=== PATIENT | male | born 1945 | race Caucasian/White ===

== ENCOUNTER 2016-12-17 17:58 | Emergency (ER) | payer MEDICARE ==
[~2016-12-17] VITALS: Ht 172.7 cm; Wt 88.6 kg
[~2016-12-17 17:58] MED LIST: ASPI-973 PO; GINK60TA2 PO
[2016-12-17 18:17] VITALS: BP 136/80; PULSE 88; RESP 16; O2SAT 97
--- NOTE | 2016-12-17 18:20 | ED.REPORT ---
HPI-Head Prob / Injury Date of Service Dec 17, 2016 ED Provider: Raman Gaffney DO Pt is a 71 y.o. male who presents to the ED c/o neck and back pain after falling while skiing at 1130 today. Pt states that he was wearing a helmet at the time of the fall. He reports skiing down hill and "getting air" then landing directly on his head, his head became buried in the snow. He denies LOC or head pain. Nursing Notes Stated Complaint: BACK/NECK PAIN Chief Complaint: Head, Face, Neck Trauma Nursing Notes Reviewed: Yes Allergies: Coded Allergies: bacitracin (Verified Allergy, Mild, 12/17/16) montelukast (Verified Allergy, Unknown, 12/17/16) Uncoded Allergies: BEE STINGS (Adverse Reaction, Unknown, 08/25/15) Scheduled Aspirin (Aspirin) 81 Mg Tablet 81 MG PO DAILY Ginkgo Biloba (Ginkgo) 60 Mg Tablet 60 MG PO DAILY General Time Seen by Provider: 18:19 Chief Complaint Other (Back and Neck pain) Hx Obtained From: Patient Arrived By: Walk-in Onset Occurred: 5 - 8 hours ago Context of Onset: During sports Symptom Duration: Since onset Caused by: Fall while (skiing) Quality: Painful Severity: Current: Moderate Recent Healthcare: No recent doctor visit, No recent hospitalization Similar Sx Previous: No Past Medical History Past Medical History Reports: Asthma Past Surgical History None reported Smoking History Never Smoker Ambulatory Status Independent Review of Systems Musculoskeletal: Reports: Back pain, Neck pain Neurologic: Denies: Change LOC, Headache Complete sys rev & neg: except as marked. Physical Exam Initial Vital Signs Vital Signs (First) Date Time Temp Pulse Resp B/P Pulse Ox O2 Delivery O2 Flow Rate FiO2 12/17/16 18:17 37.5 88 16 136/80 97 Room Air Initial VS: Reviewed Respiratory: Breath sounds normal, No respiratory distress Cardiovascular: Regular rate & rhythm, Intact distal pulses Abdomen / GI: No distention Extremities: Vascular intact, Neuro intact Skin: Warm, Dry, No cyanosis Psychiatric: Mood/affect normal, Behavior normal, Normal thought content General/Constitutional: Awake, Alert, No acute distress, Well appearing, Well developed, Well hydrated, Well nourished, Not toxic appearing Head / Eyes: Atraumatic, Normocephalic, PERRL ENT: Atraumatic, Airway patent Neck: Atraumatic Trauma - Neck Specific: Positive: Immobilized - C Collar C-spine tenderness Neurologic: Oriented X3, Speech NL, CN II - XII intact Flank / Spine / Paraspinal: Positive: Thoracic spine tender... (High) Interpretation & Diagnostics X-Ray C-Spine Interpretation X-Ray Interpretation Xray Interpretation: IMPRESSION: No trauma found. There is a moderate degree of degenerative disc disease over the lower thoracic spine and the lumbosacral junction as seen at L1-2 and L2-3. Dictated by: Leo Werner M.D. on 12/17/2016 at 19:26 Approved by: Leo Werner M.D. on 12/17/2016 at 19:26 Study Performed: PROCEDURE: X-RAY LUMBAR SPINE, 2 OR 3 VIEW Xray Interpretation: IMPRESSION: Mild to moderate degenerative disc disease over the middle and lower thirds of the thoracic spine, extending into the thoracolumbar junction, but no compression fracture or traumatic subluxation is found. Dictated by: Leo Werner M.D. on 12/17/2016 at 19:27 Approved by: Leo Werner M.D. on 12/17/2016 at 19:28 Study Performed: PROCEDURE: X-RAY THORACIC SPINE, [address] C-Spine Interpretation IMPRESSION: A moderate degree of mid cervical degenerative disc disease is present but no fracture or traumatic subluxation can be seen. Dictated by: Leo Werner M.D. on 12/17/2016 at 19:29 Approved by: Leo Werner M.D. on 12/17/2016 at 19:30 Re-Eval/Medical Decision Med Decision/Clinical Course No signs of bony or ligamentous injury. No neurologic deficits. Suspect strain. We will treat with short course of hydrocodone. Routine opiate warnings given. Routine neck injury warnings given as well. Brain CT was not indicated based on published guidelines. There was no loss of consciousness. He was wearing a helmet. He did not have vomiting. It has been greater than 6 hours since the accident. No headache. No anticoagulant use Source of Hx: Old records Re-Evaluation/Progress : Time of Eval: 19:53 Re-Evaluation/Progress Note: Pt rechecked. Discussed plan for discharge, pt understands and agrees with plan. Counseled Regarding: Diagnosis Discharge & Departure Primary Impression: Neck pain Additional Impression: Back pain Back pain location: thoracic back pain Chronicity: acute Back pain laterality: midline Qualified Code: M54.6 - Pain in thoracic spine Disposition: Home All VS Reviewed: Yes Condition: Stable Patient Instructions: Cervical Sprain (ED) Additional Instructions: The images reveal evidence of degenerative changes however there is no fracture or dislocation. I suspect that you had strained or sprained ligaments in your neck and back. Take one [place] every 6 hours as needed for pain. Take it easy for a few days. Set up a follow-up through primary care physician next week. If you develop any weakness, numbness or paresthesias or increasing pain do not hesitate to return to the emergency department. Do not drive or drink alcohol or consume acetaminophen while taking the [place]. Referrals: Monty Arenas MD (PCP) Scribe Attestation Portions of this note were transcribed by Del Tatum. I, Dr. Gaffney personally performed the history, physical exam and medical decision-making; I reviewed and confirmed the accuracy of the information in the transcribed note. Signed by : Ke Billings, 12/17/16 and 1953. copies to: Monty Arenas MD, Todd P DO Dec 17, 2016 18:19 DEL TATUM Dec 17, 2016 18:29
--- NOTE | 2016-12-17 19:28 | DRSVH ---
PROCEDURE: X-RAY LUMBAR SPINE, 2 OR 3 VIEW INDICATIONS: skiing accident, pain TECHNIQUE: 2 views of the lumbar spine were acquired. COMPARISON: None. FINDINGS: Bones: 5 [id number] vertebrae are present. There is normal bony alignment. No vertebral body compression fractures. No suspicious bony lesions. Soft tissues: Overlying bowel gas pattern is normal. No suspicious soft tissue calcifications. IMPRESSION: No trauma found. There is a moderate degree of degenerative disc disease over the lower thoracic spine and the lumbosacral junction as seen at L1-2 and L2-3. Dictated by: Leo Werner M.D. on 12/17/2016 at 19:26 Approved by: Leo Werner M.D. on 12/17/2016 at 19:26
--- NOTE | 2016-12-17 19:30 | DRSVH ---
ROCEDURE: X-RAY THORACIC SPINE, 3 VIEWS INDICATIONS: skiing accident, pain TECHNIQUE: 3 views of the thoracic spine were acquired. COMPARISON: [facility], , XR LUMBAR SPINE 2 OR 3VW, 12/17/2016, 18:43. FINDINGS: Bones: No fractures or dislocations. No suspicious bony lesions. 12 pairs of ribs are noted, and ap pear intact where visualized. Soft tissues: No paravertebral stripe thickening. IMPRESSION: Mild to moderate degenerative disc disease over the middle and lower thirds of the thora cic spine, extending into the thoracolumbar junction, but no compression fracture or traumatic sublux ation is found. Dictated by: Leo Werner M.D. on 12/17/2016 at 19:27 Approved by: Leo Werner M.D. on 12/17/2016 at 19:28
--- NOTE | 2016-12-17 19:32 | DRSVH ---
PROCEDURE: CT CERVICAL SPINE WITHOUT CONTRAST ([id number]) INDICATIONS: neck pain, skiing accident TECHNIQUE: Noncontrast 3 mm thick sections acquired from the skull base to the T4 level. Sagittal and coronal r eformats were then constructed. For radiation dose reduction, the following was used: automated exp osure control, adjustment of mA and/or kV according to patient size. COMPARISON: None. FINDINGS: Image quality: Excellent. Bones: No fractures or dislocations. Visualized superior ribs are intact. Soft tissues: Prevertebral soft tissues are normal in thickness. No paravertebral hematomas. No ap ical pneumothoraces. IMPRESSION: A moderate degree of mid cervical degenerative disc disease is present but no fracture o r traumatic subluxation can be seen. Dictated by: Leo Werner M.D. on 12/17/2016 at 19:29 Approved by: Leo Werner M.D. on 12/17/2016 at 19:30
[2016-12-17 20:22] VITALS: PULSE 63; RESP 16; O2SAT 96
== END 2016-12-17 20:24 | disposition home or self-care (01) ==
LOC: SED 17:58
DX: M54.2 Cervicalgia (principal); M54.6 Pain in thoracic spine; V00.321A Fall from snow-skis, initial encounter; Y92.89 Other specified places as the place of occurrence of the external cause; Y93.23 Activity, snow (alpine) (downhill) skiing, snowboarding, sledding, tobogganing and snow tubing; Y99.8 Other external cause status; J45.909 Unspecified asthma, uncomplicated; M50.920 Unspecified cervical disc disorder, mid-cervical region, unspecified level; M51.36 Other intervertebral disc degeneration, lumbar region; Z79.82 Long term (current) use of aspirin; Z88.1 Allergy status to other antibiotic agents; Z88.8 Allergy status to other drugs, medicaments and biological substances